=== PATIENT | male | born 1950 | race Caucasian/White ===

== ENCOUNTER 2023-01-03 09:50 | Inpatient (IN) | payer MEDICARE, OTHER ==
[~2023-01-03] VITALS: Ht 187.9 cm; Wt 61.2 kg
[2023-01-03 10:37] VITALS: BP 100/60
[2023-01-03 11:01] LABS: BASO % 0.3 % (0.0-1.0); EOS # 0.1 10*3/uL (0.0-0.4); EOS % 0.7 % (1.0-4.0); HEMATOCRIT 27.5 % (42.0-52.0); LYMPH # 0.9 10*3/uL (1.3-4.4); LYMPH % 13.3 % (27.0-41.0); MEAN CELL VOLUME 91.1 fl (80.0-94.0); MEAN CORPUSCULAR HGB 32.8 pg (27.0-31.0); MEAN PLATELET VOLUME 9.5 fl (9.6-12.3); MONO # 0.9 10*3/uL (0.1-1.0); MONO % 12.7 % (3.0-9.0); NEUT # 4.9 10*3/uL (2.3-7.9); NEUT % 72.7 % (47.0-73.0); PLATELET COUNT AUTOMATED 216 10*3/uL (130-400); RED BLOOD COUNT 3.02 10*6/uL (4.50-5.90); RED CELL DISTRI WIDTH 13.4 % (0-14.5); WHITE BLOOD COUNT 6.7 10*3/uL (4.8-10.8)
[2023-01-03 11:11] LABS: ACT PARTIAL THROMBO TIME 29.6 SECONDS (20.0-32.1); INTERNATIONAL NORM RATIO 1.1 (2.0-3.5)
[2023-01-03 11:27] LABS: ALKALINE PHOSPHATASE 46 U/L (46-116); BUN 20 mg/dl (9-23); CHLORIDE 96 mmol/L (98-107); LIPASE 48 U/L (12-53); POTASSIUM 4.4 mmol/L (3.4-5.1); SGPT/ALT 15 U/L (10-49); TOTAL PROTEIN 6.5 gm/dL (6.0-8.0)
[2023-01-03 13:16] LABS: BILIRUBIN Negative (Negative); BLOOD Negative (Negative); CLARITY Clear (Clear); COLOR Yellow (Yellow); GLUCOSE Negative (Negative); KETONE Negative (Negative); LEUKO ESTERASE 1+ (Negative); NITRITE Negative (Negative); PH 6.5 (4.5-8.0); SPECIFIC GRAVITY <= 1.005 (1.001-1.030); UROBILINOGEN 0.2 E.U./dl (0.0-1.0)
[2023-01-03 13:23] LABS: URINE AMPHETAMINES Negative (1000ng/ml); URINE BARBITURATES Negative (200ng/ml); URINE BENZODIAZEPINES Negative (200ng/ml); URINE CANNABINOIDS (THC) Negative (50ng/ml); URINE COCAINE Negative (300ng/ml); URINE METHADONE Negative (300ng/ml); URINE OPIATES Negative (300ng/ml); URINE PHENCYCLIDINE Negative (25ng/ml)
[2023-01-03 13:24] LABS: BACTERIA 2+; EPITHELIAL CELLS 0-2
[2023-01-03 15:20] VITALS: BP 111/57
[2023-01-03] MEDS ORDERED: PROVERA10 MG PO (16:55)
[2023-01-03] MEDS ORDERED: CIMETIDINE400 M1 PO (16:55)
[2023-01-03] MEDS ORDERED: MELATONIN5 M7 PO (16:56)
[2023-01-03] MEDS ORDERED: METOPROLOL SUCC50 M1 PO (16:58)
[2023-01-03] MEDS ORDERED: MILK OF MA2400 MG/11 PO (16:59)
[2023-01-03] MEDS ORDERED: NITROGLYCERIN0.4 MG SL (17:00)
[2023-01-03] MEDS ORDERED: TOPCARE OMEPRAZ20 MG PO (17:01)
[2023-01-03] MEDS ORDERED: SENNA-S 8.6-501 EACH PO (17:02)
[2023-01-03] MEDS ORDERED: BACTRIM 400-801 EACH PO (17:06)
[2023-01-03] MEDS ORDERED: TRAZODONE50 MG PO (17:07)
[2023-01-03] MEDS ORDERED: TRAZODONE100 MG PO (17:07)
[2023-01-03 17:29] VITALS: BP 109/56
[2023-01-03 19:11] VITALS: BP 110/60
[2023-01-03 20:00] VITALS: BP 110/60
[2023-01-04 08:15] LABS: BASO % 0.5 % (0.0-1.0); EOS # 0.1 10*3/uL (0.0-0.4); EOS % 2.1 % (1.0-4.0); HEMATOCRIT 29.9 % (42.0-52.0); LYMPH # 1.6 10*3/uL (1.3-4.4); LYMPH % 25.4 % (27.0-41.0); MEAN CELL VOLUME 93.4 fl (80.0-94.0); MEAN CORPUSCULAR HGB 31.6 pg (27.0-31.0); MEAN CORPUSCULAR HGB CONC 33.8 g/dl (33.0-37.0); MONO # 0.8 10*3/uL (0.1-1.0); MONO % 13.1 % (3.0-9.0); NEUT # 3.6 10*3/uL (2.3-7.9); NEUT % 58.6 % (47.0-73.0); PLATELET COUNT AUTOMATED 233 10*3/uL (130-400); RED CELL DISTRI WIDTH 13.4 % (0-14.5); WHITE BLOOD COUNT 6.1 10*3/uL (4.8-10.8)
[2023-01-04 08:46] LABS: POTASSIUM 4.8 mmol/L (3.4-5.1); TOTAL PROTEIN 6.5 gm/dL (6.0-8.0)
[2023-01-04 08:48] VITALS: BP 107/45
[2023-01-04 10:50] LABS: VITAMIN D, 25-HYDROXY 43.4 ng/mL (30-100)
[2023-01-04 20:00] VITALS: BP 137/82
[2023-01-05 07:29] VITALS: BP 116/55
[2023-01-05 20:00] VITALS: BP 112/68
[2023-01-06 08:00] VITALS: BP 85/53
[2023-01-06 08:00] LABS: POTASSIUM 4.6 mmol/L (3.4-5.1)
[2023-01-06 20:00] VITALS: BP 127/63
[2023-01-07 07:34] VITALS: BP 130/86
[2023-01-07] MEDS ORDERED: REMEDY CALAZIME4 GM T (09:37)
[2023-01-07] MEDS ORDERED: MAG-AL PLUS 3030 ML PO (09:37)
[2023-01-07] MEDS ORDERED: CALCIUM CARBON200 MG PO (09:37)
[2023-01-07 20:00] VITALS: BP 113/57
[2023-01-08 07:36] VITALS: BP 90/60
[2023-01-08] MEDS ORDERED: MIRTAZAPINE15 M2 PO (08:42)
[2023-01-08] MEDS ORDERED: RISPERIDONE1 MG PO (08:42)
== END 2023-01-08 16:54 | DRG 885 ==
LOC: ED 09:50 → 3N 15:11
PROVIDERS: Emergency Medicine; Student in an Organized Health Care Education/Training Program; ADMIT Psychiatry & Neurology Psychiatry; ATTEND Psychiatry & Neurology Psychiatry
PROC: 0HBRXZZ Excision of Toe Nail, External Approach (ICD-10-PCS; principal; 2023-01-04)
PROC: 0HBRXZZ Excision of Toe Nail, External Approach (ICD-10-PCS; 2023-01-04)
PROC: 0HBRXZZ Excision of Toe Nail, External Approach (ICD-10-PCS; 2023-01-04)
PROC: 0HBRXZZ Excision of Toe Nail, External Approach (ICD-10-PCS; 2023-01-04)
PROC: 0HBRXZZ Excision of Toe Nail, External Approach (ICD-10-PCS; 2023-01-04)
PROC: 0HBRXZZ Excision of Toe Nail, External Approach (ICD-10-PCS; 2023-01-04)
PROC: 0HBRXZZ Excision of Toe Nail, External Approach (ICD-10-PCS; 2023-01-04)
DX: F25.9 Schizoaffective disorder, unspecified (principal); F63.81 Intermittent explosive disorder; N18.32 Chronic kidney disease, stage 3b; N30.00 Acute cystitis without hematuria; F23 Brief psychotic disorder; I25.10 Atherosclerotic heart disease of native coronary artery without angina pectoris; K21.9 Gastro-esophageal reflux disease without esophagitis; I12.9 Hypertensive chronic kidney disease with stage 1 through stage 4 chronic kidney disease, or unspecified chronic kidney disease; E78.5 Hyperlipidemia, unspecified; Z66 Do not resuscitate; E11.22 Type 2 diabetes mellitus with diabetic chronic kidney disease; E11.51 Type 2 diabetes mellitus with diabetic peripheral angiopathy without gangrene; B35.1 Tinea unguium; S31.829A Unspecified open wound of left buttock, initial encounter; S31.819A Unspecified open wound of right buttock, initial encounter; X58.XXXA Exposure to other specified factors, initial encounter; Z95.0 Presence of cardiac pacemaker; Z51.5 Encounter for palliative care; Z87.891 Personal history of nicotine dependence; Z79.85 Long-term (current) use of injectable non-insulin antidiabetic drugs; Y93.89 Activity, other specified; Y92.89 Other specified places as the place of occurrence of the external cause; Y99.8 Other external cause status